=== PATIENT | female | born 1970 | race Caucasian/White ===

== ENCOUNTER 2019-02-16 18:45 | Inpatient (IN) | payer MEDICAID ==
[~2019-02-16] VITALS: Ht 163.8 cm; Wt 168.0 kg
[2019-02-16 19:58] LABS: BASOPHILS # (AUTO) 0.2 X10'3 (0-0.2); BASOPHILS % (AUTO) 1.5 % (0-1); EOSINOPHILS # (AUTO) 0.3 X10'3 (0-0.9); EOSINOPHILS % (AUTO) 2.7 % (0-6); HEMATOCRIT 35.5 % (35.0-45.0); HEMOGLOBIN 11.3 g/dl (12.0-16.0); LYMPHOCYTES # (AUTO) 2.1 X10'3 (1.1-4.8); LYMPHOCYTES % (AUTO) 17.3 % (21-51); MEAN CORPUSCULAR HEMOGLOBIN 22.6 PG (27.0-31.0); MEAN CORPUSCULAR VOLUME 70.7 FL (78-98); MEAN PLATELET VOLUME 7.7 FL (7.4-10.4); MONOCYTES # (AUTO) 0.6 X10'3 (0-0.9); MONOCYTES % (AUTO) 5.2 % (2-12); NEUTROPHILS % (AUTO) 73.3 % (42-75); PLATELET COUNT 267 X10'3 (140-440); RED BLOOD COUNT 5.02 X10'6 (4.20-5.60); RED CELL DISTRIBUTION WIDTH 17.1 % (11.5-14.5); WHITE BLOOD COUNT 12.3 X10'3 (4.5-11.0)
[2019-02-16 20:12] LABS: PARTIAL THROMBOPLASTIN TIME 22 SECONDS (22-32)
[2019-02-16 20:14] LABS: ALANINE AMINOTRANSFERASE 44 U/L (12-78); ALBUMIN 3.5 G/DL (3.4-5.0); ALBUMIN/GLOBULIN RATIO 0.9 (1.1-1.5); ALKALINE PHOSPHATASE 48 IU/L (46-116); ANION GAP 11 (8-16); ASPARTATE AMINO TRANSFERASE 27 U/L (10-37); BILIRUBIN,TOTAL 0.4 MG/DL (0.1-1.0); BLOOD UREA NITROGEN 19 MG/DL (7-18); BUN/CREATININE RATIO 20.9 (6.6-38.0); CALCIUM 9.1 MG/DL (8.5-10.1); CHLORIDE 104 MMOL/L (99-107); CREATININE 0.91 MG/DL (0.40-0.90); GLUCOSE 113 MG/DL (70-104); POTASSIUM 3.4 MMOL/L (3.5-5.1); SODIUM 140 MMOL/L (135-145); TOTAL CARBON DIOXIDE 25.3 MMOL/L (24-32); TOTAL PROTEIN 7.4 G/DL (6.4-8.2); eGFR 66 ML/MIN
[2019-02-16] MEDS ORDERED: ipratropium/albuterol 3ml nebule NEB ONE (20:15)
[2019-02-16] MEDS ORDERED: aspirin 81mg tab.chew PO ONE (20:40)
[2019-02-16] MEDS ORDERED: temazepam 15mg capsule PO PRN (21:00)
[2019-02-16] MEDS ORDERED: SYN0.088T PO (22:12)
[2019-02-16] MEDS ORDERED: mag hydrox/Alum hydrox/simeth 30ml oral suspension PO PRN (22:15)
[2019-02-16] MEDS ORDERED: regadenoson 0.4mg/5ml syringe IV ONE (22:15)
[2019-02-16] MEDS ORDERED: NAPR-1154 PO (22:15)
[2019-02-16] MEDS ORDERED: aminophylline 250mg/10ml inj. IV PRN (22:15)
[2019-02-16] MEDS ORDERED: acetaminophen 325mg tablet PO PRN ×2 (22:15)
[2019-02-16] MEDS ORDERED: nitroGLYCERIN 0.4mg SUBLingual tab SL PRN (22:15)
[2019-02-16] MEDS ORDERED: ondansetron/PF 4mg/2ml inj IV PRN (22:15)
[2019-02-16] MEDS ORDERED: potassium Cl 20 mEq SR tablet PO PRN (22:15)
[2019-02-16] MEDS ORDERED: metoprolol tartrate 1mg/ml inj IV PRN (22:15)
[2019-02-16] MEDS ORDERED: albuterol 2.5 MG/3 ML nebule NEB PRN (22:15)
[2019-02-16] MEDS ORDERED: potassium CL 10mEq/100ml bag 100 ML IV PRN ×2 (22:15)
[2019-02-16] MEDS ORDERED: magnesium hydroxide 30ml (MOM) UD suspension PO PRN (22:15)
[2019-02-16] MEDS ORDERED: regadenoson 0.4mg/5ml syringe IV PRN (22:40)
--- NOTE | 2019-02-16 23:10 | NUR ---
Received report from Silver in the ER. Patient on their way up to the PCU unit at this time.
--- NOTE | 2019-02-16 23:15 | NUR ---
Patient arrived to PCU at this time going into room 3021. She is alert and oriented and able to make her needs known. She was able to ambulate from the gurney to the bed independently without assistance but did experience some increased shortness of breath with exertion. She is on 2 liters oxygen via nasal cannula. Vitals are stable. She denies any pain at this time, just says that sometimes when her SOB increases she feels some chest tightness. All safety precautions are in place. She is shown how to use the call light system. Will continue to monitor.
[2019-02-16 23:20] VITALS: BP 137/98
[2019-02-16] MEDS: normal saline 1000ml 1,000 ML IV SCH (23:29)
[2019-02-17] VITALS (14 sets, daily range): BP systolic 123–153; BP diastolic 76–97
--- NOTE | 2019-02-17 01:03 | NUR ---
Med req initiated in the ER and all medications that patient could recall the names and dosages of were inputted, however patient does take more medications that she does not know off of memory and it was requested for her to have a family member bring in her home medication list.
[2019-02-17] MEDS: potassium Cl 20 mEq SR tablet PO PRN ×3 (01:31→17:12)
[2019-02-17 02:28] LABS: ALBUMIN 3.2 G/DL (3.4-5.0); ANION GAP 10 (8-16); BLOOD UREA NITROGEN 17 MG/DL (7-18); BUN/CREATININE RATIO 17.7 (6.6-38.0); CALCIUM 8.1 MG/DL (8.5-10.1); CHLORIDE 104 MMOL/L (99-107); CHOL/HDL RATIO 3.6 (0.00-4.99); CHOLESTEROL 112 MG/DL (0-200); CREATININE 0.96 MG/DL (0.40-0.90); GLUCOSE 129 MG/DL (70-104); HDL CHOLESTEROL 31 MG/DL (35-60); LDL CHOLESTEROL 70 MG/DL (50-100); POTASSIUM 3.4 MMOL/L (3.5-5.1); SODIUM 140 MMOL/L (135-145); TOTAL CARBON DIOXIDE 26.1 MMOL/L (24-32); TRIGLYCERIDES 141 MG/DL (20-135); eGFR 62 ML/MIN
--- NOTE | 2019-02-17 06:29 | NUR ---
Problems reprioritized. Patient report given , questions answered & plan of care reviewed with Tracie CAR.
--- NOTE | 2019-02-17 06:30 | NUR ---
Patient in room PCU 3021. I have received report from Mima CAR and had the opportunity to ask questions and assume patient care.
--- NOTE | 2019-02-17 06:30 | NUR ---
Patient in room PCU 3021. I have received report from Mima CAR and had the opportunity to ask questions and assume patient care. Patient awake in bed with no complaints at this time. All immediate needs met.
[2019-02-17] MEDS: K and/or MAG REPLACEMENT MC SCH (08:00)
[2019-02-17 08:01] LABS: MEAN PLATELET VOLUME 7.8 FL (7.4-10.4); MONOCYTES # (AUTO) 0.6 X10'3 (0-0.9)
[2019-02-17 08:07] LABS: HEMOGLOBIN 11.3 g/dl (12.0-16.0); MEAN CORPUSCULAR HGB CONC 31.5 g/dL (33.0-36.5); NEUTROPHILS % (AUTO) 71.7 % (42-75)
[2019-02-17 08:10] LABS: BASOPHILS # (AUTO) 0.2 X10'3 (0-0.2); BASOPHILS % (AUTO) 1.4 % (0-1); EOSINOPHILS # (AUTO) 0.4 X10'3 (0-0.9); EOSINOPHILS % (AUTO) 3.2 % (0-6); HEMATOCRIT 35.8 % (35.0-45.0); LYMPHOCYTES # (AUTO) 2.3 X10'3 (1.1-4.8); LYMPHOCYTES % (AUTO) 18.6 % (21-51); MEAN CORPUSCULAR HEMOGLOBIN 22.6 PG (27.0-31.0); MEAN CORPUSCULAR VOLUME 71.8 FL (78-98); MONOCYTES % (AUTO) 5.1 % (2-12); NEUTROPHILS # (AUTO) 8.9 X10'3 (1.8-7.7); PLATELET COUNT 265 X10'3 (140-440); RED BLOOD COUNT 4.98 X10'6 (4.20-5.60); RED CELL DISTRIBUTION WIDTH 17.2 % (11.5-14.5); WHITE BLOOD COUNT 12.4 X10'3 (4.5-11.0)
[2019-02-17 08:24] LABS: ANISOCYTOSIS 1+; GIANT PLATELET FEW; MICROCYTOSIS 1+; PLATELET ESTIMATE NORMAL
[2019-02-17 08:25] LABS: POLYCHROMASIA 2+
[2019-02-17 10:15] LABS: D-DIMER 1.52 MG/L FEU (0-0.50)
[2019-02-17] MEDS: normal saline 1000ml 1,000 ML IV SCH ×2 (12:11→23:30)
[2019-02-17] MEDS ORDERED: iohexol 350MG/ML 100ml bottle IV ONE (13:08)
[2019-02-17] MEDS: furosemide 40mg/4ml inj IV SCH ×2 (13:10→19:33)
--- NOTE | 2019-02-17 13:47 | NUR ---
Paged Dr. Cook: PAGER ID: [phone] MESSAGE: RE; Alycia Desai [phone]. FYI - patient complained on increased chest pain. Ordered stat EKG and it was negative. Patient going for CT now. thank you. Tracie [phone]
--- NOTE | 2019-02-17 14:49 | NUR ---
Paged Dr. Cook: PAGER ID: [phone] MESSAGE: RE: Caroline Alycia [phone]. Patient CT resulted. Lexiscan completed. Is it OK to feed patient? Thank you Dr. Cook. Tracie [phone]
--- NOTE | 2019-02-17 15:01 | NUR ---
New orders from Dr. Cook: Eliquis 5 mg PO BID. Start now. Heart healthy diet
[2019-02-17] MEDS: apixaban 5mg tablet PO SCH ×2 (15:41→19:33)
--- NOTE | 2019-02-17 18:16 | NUR ---
Problems reprioritized. Patient report given, questions answered & plan of care reviewed with Satnam CAR. Patient stable at transfer of care.
--- NOTE | 2019-02-17 18:24 | NUR ---
Patient in room PCU 3021. I have received report from Tracie CAR and had the opportunity to ask questions and assume patient care.
--- NOTE | 2019-02-17 18:59 | NUR ---
Student documentation: I have reviewed and agree with all interventions, assessments performed and documented by Doreen LEAHY. Student Medication Administration: For this medication-pass time frame, all medication were reviewed, dispensed, administered and documented per hospital policy by Doreen CAR.
[2019-02-18 02:30] VITALS: BP 153/92
[2019-02-18] MEDS: normal saline 1000ml 1,000 ML IV SCH (04:11)
[2019-02-18 05:01] LABS: ANION GAP 8 (8-16); BASOPHILS # (AUTO) 0.1 X10'3 (0-0.2); BASOPHILS % (AUTO) 1.1 % (0-1); BLOOD UREA NITROGEN 19 MG/DL (7-18); BUN/CREATININE RATIO 21.3 (6.6-38.0); CALCIUM 8.7 MG/DL (8.5-10.1); CHLORIDE 106 MMOL/L (99-107); CREATININE 0.89 MG/DL (0.40-0.90); EOSINOPHILS # (AUTO) 0.4 X10'3 (0-0.9); EOSINOPHILS % (AUTO) 3.7 % (0-6); GLUCOSE 92 MG/DL (70-104); HEMOGLOBIN 11.1 g/dl (12.0-16.0); LYMPHOCYTES # (AUTO) 2.7 X10'3 (1.1-4.8); LYMPHOCYTES % (AUTO) 27.3 % (21-51); MEAN CORPUSCULAR HEMOGLOBIN 22.9 PG (27.0-31.0); MEAN CORPUSCULAR HGB CONC 31.8 g/dL (33.0-36.5); MEAN CORPUSCULAR VOLUME 71.9 FL (78-98); MEAN PLATELET VOLUME 7.8 FL (7.4-10.4); MONOCYTES # (AUTO) 0.6 X10'3 (0-0.9); NEUTROPHILS # (AUTO) 6.2 X10'3 (1.8-7.7); NEUTROPHILS % (AUTO) 61.9 % (42-75); PLATELET COUNT 244 X10'3 (140-440); POTASSIUM 3.4 MMOL/L (3.5-5.1); RED BLOOD COUNT 4.86 X10'6 (4.20-5.60); RED CELL DISTRIBUTION WIDTH 17.1 % (11.5-14.5); SODIUM 141 MMOL/L (135-145); TOTAL CARBON DIOXIDE 26.6 MMOL/L (24-32); eGFR 68 ML/MIN
[2019-02-18] MEDS: potassium Cl 20 mEq SR tablet PO PRN ×2 (05:33→10:15)
--- NOTE | 2019-02-18 05:55 | NUR ---
Orientee documentation: I have reviewed and agree with all interventions, assessments performed and documented by Vincenzo CAR.
[2019-02-18 06:00] VITALS: BP_SYST 148; BP_SYST 160; BP_DIAS 82; BP_DIAS 97
[2019-02-18] MEDS ORDERED: enoxaparin 40mg/0.4ml syringe SUBCUT SCH (08:00)
[2019-02-18] MEDS: apixaban 5mg tablet PO SCH (08:47)
[2019-02-18] MEDS: furosemide 40mg/4ml inj IV SCH (08:47)
[2019-02-18] MEDS: K and/or MAG REPLACEMENT MC SCH (08:56)
[2019-02-18] MEDS ORDERED: APIX5TAB3 PO (10:29)
[2019-02-18] MEDS ORDERED: FURO-150 PO (10:29)
[2019-02-18 11:00] VITALS: BP_SYST 130; BP_SYST 134; BP_DIAS 79; BP_DIAS 86
--- NOTE | 2019-02-18 11:46 | NUR ---
ambulated patient without O2 and monitored SPO2 throughout walk. Patient's breathing did become somewhat labored but patient did not report dyspnea or chest pain, SPO2 maintained >93% throughout ambulation. Patient does not require O2 at home.
--- NOTE | 2019-02-18 15:15 | NUR ---
Received order for patient discharge to occur after vascular scan, vascular scan completed and patient IV removed, catheter tip intact, hemostasis achieved. Patient educated on new medications and disease process and verbalized understanding of the education. Telemetry removed, wrist band removed, stable at time of discharge, patient transported downstairs by director nursing service via wheelchair, patient instructed to strip picker her knife from security at the director of front office.
[2019-02-21 06:23] LABS: ANTITHROMBIN ACTIVITY 125 % (75-135); ANTITHROMBIN ANTIGEN 84 % (72-124)
[2019-02-21 10:05] LABS: PROTEIN S, FREE 115 % (57-157); PROTEIN S, TOTAL 86 % (60-150)
== END 2019-02-18 15:11 | disposition home or self-care (01) | DRG 134 ==
LOC: ER 18:46 → ED HOLD 22:18 → EDBEDREQ 22:21 → PCU 3S 23:19 → OBSVTOIN 02-17 11:00
PROVIDERS: ADMIT Hospitalist; ATTEND Internal Medicine
PROC: 4A02XM4 Measurement of Cardiac Total Activity, External Approach (ICD-10-PCS; principal; 2019-02-17)
PROC: 3E033HZ Introduction of Radioactive Substance into Peripheral Vein, Percutaneous Approach (ICD-10-PCS; 2019-02-17)
PROC: B32T1ZZ Computerized Tomography (CT Scan) of Left Pulmonary Artery using Low Osmolar Contrast (ICD-10-PCS; 2019-02-17)
PROC: B3201ZZ Computerized Tomography (CT Scan) of Thoracic Aorta using Low Osmolar Contrast (ICD-10-PCS; 2019-02-17)
PROC: B32S1ZZ Computerized Tomography (CT Scan) of Right Pulmonary Artery using Low Osmolar Contrast (ICD-10-PCS; 2019-02-17)
DX: I26.09 Other pulmonary embolism with acute cor pulmonale (principal); J96.01 Acute respiratory failure with hypoxia; E66.01 Morbid (severe) obesity due to excess calories; Z68.44 Body mass index [BMI] 60.0-69.9, adult; E03.9 Hypothyroidism, unspecified; E87.6 Hypokalemia; J42 Unspecified chronic bronchitis; I10 Essential (primary) hypertension; Z60.2 Problems related to living alone; M54.9 Dorsalgia, unspecified; G89.29 Other chronic pain; J45.909 Unspecified asthma, uncomplicated; Z79.01 Long term (current) use of anticoagulants; Z79.899 Other long term (current) drug therapy; Z98.51 Tubal ligation status; Z88.8 Allergy status to other drugs, medicaments and biological substances; Z90.49 Acquired absence of other specified parts of digestive tract
CPT/HCPCS: 36415; 71046; 71275; 78452; 80048; 80053; 80061; 81479; 83880; 83891; 83894; 83898; 84484; 85025; 85300; 85301; 85303; 85305; 85306; 85379; 85610; 85730; 86146; 86147; 87081; 93005; 93017; 93306; 93970; 94640; 94760; 99285; A9500; G0378; J0280; J1650; J1940; J2785; J7030; Q9967

== ENCOUNTER 2019-06-19 14:42 | Emergency (ER) | payer MEDICAID ==
[~2019-06-19] VITALS: Ht 162.6 cm; Wt 163.0 kg
[~2019-06-19 14:42] MED LIST: APIX5TAB3 PO; SYN0.088T PO
[2019-06-19 16:27] LABS: BASOPHILS # (AUTO) 0.1 X10'3 (0-0.2); BASOPHILS % (AUTO) 1.8 % (0-1); EOSINOPHILS # (AUTO) 0.3 X10'3 (0-0.9); EOSINOPHILS % (AUTO) 5.1 % (0-6); HEMATOCRIT 32.5 % (35.0-45.0); HEMOGLOBIN 10.2 g/dl (12.0-16.0); LYMPHOCYTES # (AUTO) 1.7 X10'3 (1.1-4.8); MEAN CORPUSCULAR HEMOGLOBIN 21.4 PG (27.0-31.0); MEAN CORPUSCULAR HGB CONC 31.5 g/dL (33.0-36.5); MEAN PLATELET VOLUME 6.8 FL (7.4-10.4); MONOCYTES # (AUTO) 0.3 X10'3 (0-0.9); MONOCYTES % (AUTO) 6.6 % (2-12); NEUTROPHILS # (AUTO) 2.7 X10'3 (1.8-7.7); NEUTROPHILS % (AUTO) 52.5 % (42-75); PLATELET COUNT 260 X10'3 (140-440); RED BLOOD COUNT 4.78 X10'6 (4.20-5.60); RED CELL DISTRIBUTION WIDTH 19.2 % (11.5-14.5); WHITE BLOOD COUNT 5.1 X10'3 (4.5-11.0)
[2019-06-19] MEDS ORDERED: medroxyprogesterone acet. 2.5mg tablet PO STA (16:34)
[2019-06-19 16:48] LABS: ALANINE AMINOTRANSFERASE 16 U/L (12-78); ALBUMIN 3.4 G/DL (3.4-5.0); ALBUMIN/GLOBULIN RATIO 0.8 (1.1-1.5); ALKALINE PHOSPHATASE 53 IU/L (46-116); ANION GAP 8 (8-16); ASPARTATE AMINO TRANSFERASE 13 U/L (10-37); BILIRUBIN,TOTAL 0.2 MG/DL (0.1-1.0); BLOOD UREA NITROGEN 11 MG/DL (7-18); BUN/CREATININE RATIO 14.5 (6.6-38.0); CALCIUM 9.3 MG/DL (8.5-10.1); CHLORIDE 105 MMOL/L (99-107); CREATININE 0.76 MG/DL (0.40-0.90); GLUCOSE 128 MG/DL (70-104); POTASSIUM 3.5 MMOL/L (3.5-5.1); SODIUM 141 MMOL/L (135-145); TOTAL CARBON DIOXIDE 27.7 MMOL/L (24-32); TOTAL PROTEIN 7.6 G/DL (6.4-8.2); eGFR 81 ML/MIN
[2019-06-19] MEDS ORDERED: MEDR10TA PO (16:52)
[2019-06-19 16:59] LABS: URINE HCG NEGATIVE (NEG)
[2019-06-19 17:01] VITALS: BP 157/85
[2019-06-19 17:01] LABS: CLARITY,URINE CLOUDY (Clear); COLOR,URINE RED (Yellow); GLUCOSE, URINE NEGATIVE (Neg); KETONES,URINE TRACE mg/dl (Neg); LEUKOCYTE ESTERASE ,URINE TRACE (Neg); OCCULT BLOOD,URINE LARGE (Neg); PROTEIN,URINE 100 mg/dl (Neg)
[2019-06-19 17:05] LABS: UA COLLECTION TYPE CLN CATCH MIDSTREAM
[2019-06-19 17:06] LABS: BACTERIA,URINE NONE SEEN /HPF (Neg); NITRITES, URINE NEGATIVE (Neg); RBC,URINE TNTC /HPF (0-2); WBC,URINE 0-4 /HPF (0-4)
[2019-06-19 17:07] LABS: MUCUS STRANDS FEW /LPF (Neg); SQUAMOUS EPITHELIAL CELL,UR NONE SEEN /LPF (FEW)
== END 2019-06-19 17:36 | disposition home or self-care (01) ==
LOC: ER 14:43
DX: N92.0 Excessive and frequent menstruation with regular cycle (principal); I10 Essential (primary) hypertension; J45.909 Unspecified asthma, uncomplicated; G89.29 Other chronic pain; M06.9 Rheumatoid arthritis, unspecified; Z86.711 Personal history of pulmonary embolism; Z98.51 Tubal ligation status; Z60.2 Problems related to living alone; Z88.8 Allergy status to other drugs, medicaments and biological substances; Z79.01 Long term (current) use of anticoagulants; Z79.899 Other long term (current) drug therapy
CPT/HCPCS: 80053; 81001; 81025; 85025; 85610; 87088; 99283

== ENCOUNTER 2021-08-18 22:53 | Emergency (ER) | payer MEDICAID ==
[~2021-08-18] VITALS: Ht 162.6 cm; Wt 187.0 kg
[~2021-08-18 22:53] MED LIST changes: +MEDR10TA PO
[2021-08-19 01:19] LABS: BASOPHILS # (AUTO) 0.1 X10'3 (0-0.2); BASOPHILS % (AUTO) 0.7 % (0-1); EOSINOPHILS # (AUTO) 0.2 X10'3 (0-0.9); EOSINOPHILS % (AUTO) 1.8 % (0-6); HEMATOCRIT 38.5 % (35.0-45.0); HEMOGLOBIN 12.6 g/dl (12.0-16.0); LYMPHOCYTES # (AUTO) 1.9 X10'3 (1.1-4.8); LYMPHOCYTES % (AUTO) 20.6 % (21-51); MEAN CORPUSCULAR HEMOGLOBIN 26.5 PG (27.0-31.0); MEAN CORPUSCULAR HGB CONC 32.7 g/dL (33.0-36.5); MEAN PLATELET VOLUME 7.1 FL (7.4-10.4); MONOCYTES # (AUTO) 0.5 X10'3 (0-0.9); MONOCYTES % (AUTO) 5.6 % (2-12); NEUTROPHILS # (AUTO) 6.6 X10'3 (1.8-7.7); NEUTROPHILS % (AUTO) 71.3 % (42-75); PLATELET COUNT 242 X10'3 (140-440); RED BLOOD COUNT 4.76 X10'6 (4.20-5.60); RED CELL DISTRIBUTION WIDTH 15.9 % (11.5-14.5); WHITE BLOOD COUNT 9.2 X10'3 (4.5-11.0)
[2021-08-19 01:33] LABS: ALANINE AMINOTRANSFERASE 26 U/L (12-78); ALBUMIN 3.2 G/DL (3.4-5.0); ALBUMIN/GLOBULIN RATIO 0.8 (1.1-1.5); ALKALINE PHOSPHATASE 57 IU/L (46-116); ANION GAP 7 (8-16); ASPARTATE AMINO TRANSFERASE 22 U/L (10-37); BILIRUBIN,TOTAL 0.5 MG/DL (0.1-1.0); BLOOD UREA NITROGEN 9 MG/DL (7-18); BUN/CREATININE RATIO 11.3 (6.6-38.0); CALCIUM 8.4 MG/DL (8.5-10.1); CHLORIDE 104 MMOL/L (99-107); GLUCOSE 115 MG/DL (70-104); POTASSIUM 3.2 MMOL/L (3.5-5.1); SODIUM 139 MMOL/L (135-145); TOTAL CARBON DIOXIDE 27.6 MMOL/L (24-32); TOTAL PROTEIN 7.3 G/DL (6.4-8.2); eGFR 76 ML/MIN
[2021-08-19] MEDS ORDERED: potassium Cl 20 mEq SR tablet PO STA (01:44)
[2021-08-19 02:15] VITALS: BP 176/79
== END 2021-08-19 02:16 | disposition home or self-care (01) ==
LOC: ER 22:55
DX: N93.9 Abnormal uterine and vaginal bleeding, unspecified (principal); E87.6 Hypokalemia; R42 Dizziness and giddiness; R06.02 Shortness of breath; I10 Essential (primary) hypertension; J45.909 Unspecified asthma, uncomplicated; G89.29 Other chronic pain; Z86.711 Personal history of pulmonary embolism; Z98.51 Tubal ligation status; Z60.2 Problems related to living alone; Z88.8 Allergy status to other drugs, medicaments and biological substances; Z79.899 Other long term (current) drug therapy
CPT/HCPCS: 36415; 80053; 85025; 93005; 99284

== ENCOUNTER 2022-06-27 10:48 | Inpatient (IN) | payer MEDICAID ==
[2022-06-27] VITALS (11 sets, daily range): BP systolic 107–150; BP diastolic 46–73
[~2022-06-27] VITALS: Ht 162.6 cm; Wt 182.0 kg
[2022-06-27 11:35] LABS: BASOPHILS # (AUTO) 0.1 X10'3 (0-0.2); BASOPHILS % (AUTO) 0.4 % (0-1); EOSINOPHILS % (AUTO) 0.1 % (0-6); LYMPHOCYTES # (AUTO) 0.5 X10'3 (1.1-4.8); LYMPHOCYTES % (AUTO) 2.4 % (21-51); MEAN CORPUSCULAR HEMOGLOBIN 15.3 PG (27.0-31.0); MEAN CORPUSCULAR VOLUME 56.6 FL (78-98); MONOCYTES # (AUTO) 0.5 X10'3 (0-0.9); MONOCYTES % (AUTO) 2.5 % (2-12); NEUTROPHILS # (AUTO) 19.6 X10'3 (1.8-7.7); NEUTROPHILS % (AUTO) 94.6 % (42-75); PLATELET COUNT 300 X10'3 (140-440); RED BLOOD COUNT 3.16 X10'6 (4.20-5.60); RED CELL DISTRIBUTION WIDTH 22.4 % (11.5-14.5); WHITE BLOOD COUNT 20.8 X10'3 (4.5-11.0)
[2022-06-27 11:44] LABS: APTT 23 SECONDS (22-32)
[2022-06-27 11:46] LABS: ALANINE AMINOTRANSFERASE 16 U/L (12-78); ALBUMIN 3.2 G/DL (3.4-5.0); ALBUMIN/GLOBULIN RATIO 0.8 (1.1-1.5); ALKALINE PHOSPHATASE 58 IU/L (46-116); ANION GAP 10 (8-16); ASPARTATE AMINO TRANSFERASE 16 U/L (10-37); BLOOD UREA NITROGEN 7 MG/DL (7-18); CALCIUM 8.7 MG/DL (8.5-10.1); CHLORIDE 103 MMOL/L (99-107); CREATININE 0.88 MG/DL (0.40-0.90); GLUCOSE 207 MG/DL (70-104); POTASSIUM 3.9 MMOL/L (3.5-5.1); SODIUM 138 MMOL/L (135-145); TOTAL CARBON DIOXIDE 25.5 MMOL/L (24-32); TOTAL PROTEIN 7.3 G/DL (6.4-8.2); eGFR 68 ML/MIN
[2022-06-27 11:47] LABS: HEMATOCRIT 17.9 % (35.0-45.0); HEMOGLOBIN 4.8 g/dl (12.0-16.0)
[2022-06-27 12:33] LABS: PLATELET ESTIMATE NORMAL
[2022-06-27 12:36] LABS: ANISOCYTOSIS 3+; MICROCYTOSIS 3+; POIKILOCYTOSIS 3+
[2022-06-27 12:37] LABS: ELLIPTOCYTES 1+; STOMATOCYTES 2+; TEAR DROP CELLS 1+
[2022-06-27 12:38] LABS: HYPOCHROMASIA 3+
[2022-06-27] MEDS: acetaminophen 325mg tablet PO ONE ×2 (12:55→13:49)
[2022-06-27 13:26] LABS: MAGNESIUM 1.9 MG/DL (1.5-2.4)
[2022-06-27] MEDS ORDERED: acetaminophen 325mg tablet PO ONE (14:00)
[2022-06-27] MEDS ORDERED: CefTRIAXone/D5W-Rocephin 1gm 50 ML IV ONE (14:10)
[2022-06-27] MEDS ORDERED: vancomycin/NS 1 GM ADD-VANTAGE 250 ML IV ONE (14:10)
[2022-06-27] MEDS ORDERED: LEVO100T9 PO (14:50)
[2022-06-27] MEDS ORDERED: FURO20TA4 PO (14:50)
[2022-06-27] MEDS ORDERED: ACET-1 PO (14:50)
[2022-06-27] MEDS ORDERED: APIX5TAB3 PO (14:50)
[2022-06-27] MEDS ORDERED: POTA8TAB69 PO (14:50)
[2022-06-27] MEDS ORDERED: magnesium Cl slow-release 64mg tablet PO PRN (15:00)
[2022-06-27] MEDS ORDERED: magnesium 4gm in 100ml NS 100 ML IV PRN (15:00)
[2022-06-27] MEDS ORDERED: potassium Cl 40MEQ/1/2NS 520ml 520 ML IV PRN (15:00)
[2022-06-27] MEDS ORDERED: ondansetron/PF 4mg/2ml inj IV PRN (15:00)
[2022-06-27] MEDS ORDERED: potassium Cl 20 mEq SR tablet PO PRN ×2 (15:00)
--- NOTE | 2022-06-27 15:24 | NUR ---
Report given to Crystal CAR
[2022-06-27] MEDS: normal saline 1000ml 1,000 ML IV SCH (16:59)
[2022-06-27] MEDS: acetaminophen 325mg tablet PO PRN (18:46)
[2022-06-27] MEDS: K and/or MAG REPLACEMENT MC SCH (20:00)
--- NOTE | 2022-06-27 22:49 | NUR ---
PATIENT HELPED TO BEDSIDE COMMODE AND BACK TO BED NO NEEDS AT THIS TIME
[2022-06-27] MEDS: ceFAZolin/D5W- 1GM premix 50 ML IV SCH (23:45)
[2022-06-28] VITALS (19 sets, daily range): BP systolic 131–188; BP diastolic 69–92
[2022-06-28] MEDS: normal saline 1000ml 1,000 ML IV SCH ×3 (02:01→21:13)
--- NOTE | 2022-06-28 02:23 | NUR ---
PATIENT PLACED ON A HOSPITAL Addendum: 06/28/22 at 0223 by LEANA PATIENT PLACED ON A HOSPITAL BED
[2022-06-28 03:50] LABS: BASOPHILS % (AUTO) 0.2 % (0-1); EOSINOPHILS % (AUTO) 0 % (0-6); LYMPHOCYTES % (AUTO) 6.7 % (21-51); MEAN CORPUSCULAR HEMOGLOBIN 18.1 PG (27.0-31.0); MEAN CORPUSCULAR HGB CONC 29.1 g/dL (33.0-36.5); MEAN CORPUSCULAR VOLUME 62.2 FL (78-98); MONOCYTES # (AUTO) 0.4 X10'3 (0-0.9); MONOCYTES % (AUTO) 2.6 % (2-12); NEUTROPHILS # (AUTO) 13.9 X10'3 (1.8-7.7); NEUTROPHILS % (AUTO) 90.5 % (42-75); PLATELET COUNT 231 X10'3 (140-440); RED BLOOD COUNT 3.21 X10'6 (4.20-5.60); RED CELL DISTRIBUTION WIDTH 29.5 % (11.5-14.5); WHITE BLOOD COUNT 15.4 X10'3 (4.5-11.0)
[2022-06-28 03:52] LABS: HEMOGLOBIN 5.8 g/dl (12.0-16.0)
[2022-06-28 03:55] LABS: ALBUMIN 2.6 G/DL (3.4-5.0); ANION GAP 8 (8-16); BLOOD UREA NITROGEN 9 MG/DL (7-18); BUN/CREATININE RATIO 10.8 (6.6-38.0); CALCIUM 8.6 MG/DL (8.5-10.1); CHLORIDE 106 MMOL/L (99-107); CREATININE 0.83 MG/DL (0.40-0.90); GLUCOSE 150 MG/DL (70-104); MAGNESIUM 1.9 MG/DL (1.5-2.4); POTASSIUM 3.5 MMOL/L (3.5-5.1); SODIUM 140 MMOL/L (135-145); TOTAL CARBON DIOXIDE 26.5 MMOL/L (24-32); eGFR 72 ML/MIN
--- NOTE | 2022-06-28 04:15 | NUR ---
CALLED HOSPITALIST DUE TO PATIENTS LOW H/H HOSPITALIST "[facility]" VERBALIZED THEY WILL NOT ORDER A NEW UNIT OF PRBC TO ORDER A HEMOCULT
[2022-06-28] MEDS: acetaminophen 325mg tablet PO PRN ×3 (06:26→21:17)
[2022-06-28] MEDS: potassium chloride 8mEq ER tablet PO SCH (07:23)
[2022-06-28] MEDS: levoTHYROXINE 100mcg tablet PO SCH (07:23)
[2022-06-28] MEDS: furosemide 20MG tablet PO SCH (07:23)
[2022-06-28] MEDS: K and/or MAG REPLACEMENT MC SCH ×2 (08:00→20:08)
[2022-06-28 08:33] LABS: MEAN CORPUSCULAR HEMOGLOBIN 17.6 PG (27.0-31.0); MEAN CORPUSCULAR HGB CONC 28.3 g/dL (33.0-36.5); MEAN CORPUSCULAR VOLUME 62.3 FL (78-98); MEAN PLATELET VOLUME 8.3 FL (7.4-10.4); PLATELET COUNT 225 X10'3 (140-440); RED BLOOD COUNT 3.08 X10'6 (4.20-5.60); RED CELL DISTRIBUTION WIDTH 29.9 % (11.5-14.5); WHITE BLOOD COUNT 15.5 X10'3 (4.5-11.0)
[2022-06-28 08:37] LABS: HEMOGLOBIN 5.4 g/dl (12.0-16.0)
--- NOTE | 2022-06-28 08:37 | NUR ---
JOSEP POE RE PTS H&H RESULTS
[2022-06-28] MEDS: ceFAZolin/D5W- 1GM premix 50 ML IV SCH (08:43)
[2022-06-28 08:44] LABS: HEMATOCRIT 19.2 % (35.0-45.0)
--- NOTE | 2022-06-28 09:10 | NUR ---
RECEIVED ORDERS FROM DR POE FOR 3 UNITS PRBC, OCCULT STOOL AND NON CONTRAST CT OF ABDOMEN AND PELVIS
--- NOTE | 2022-06-28 09:32 | NUR ---
ED BED 4--setup ready for occult stool test. Can you come perform? [phone] paged Dr Yan
[2022-06-28] MEDS ORDERED: iohexol 350MG/ML 100ml bottle IV ONE (10:59)
--- NOTE | 2022-06-28 12:32 | NUR ---
ed bed 4--1 unit PRBC in. pt BP elevated around 20 SBP from baseline by end of transfusion. Do you want to hold on the other units? [phone]
[2022-06-28] MEDS ORDERED: metoprolol tartrate 1mg/ml inj IV ONE (13:25)
[2022-06-28] MEDS ORDERED: furosemide 10 MG/1 ML 10ml inj IV ONE (13:25)
[2022-06-28] MEDS: cefepime 1GM/NS ADD-VANTAGE 100 ML IV SCH ×2 (14:01→16:00)
[2022-06-28] MEDS: vancomycin/NS 1 GM ADD-VANTAGE 250 ML IV SCH ×2 (16:38→23:05)
--- NOTE | 2022-06-28 21:21 | NUR ---
Provider notified of elevated temp during tranfusion, suspected this is from infectious process vs transfusion reaction. Provider is aware, agrees, advised continue with tylenol as needed.
[2022-06-28 22:53] LABS: CLARITY,URINE CLEAR (Clear); COLOR,URINE YELLOW (Yellow); GLUCOSE, URINE NEGATIVE (Neg); KETONES,URINE NEGATIVE (Neg); LEUKOCYTE ESTERASE ,URINE NEGATIVE (Neg); NITRITES, URINE NEGATIVE (Neg); OCCULT BLOOD,URINE NEGATIVE (Neg); PROTEIN,URINE TRACE mg/dl (Neg); UROBILINOGEN,URINE 0.2 E.U/dL (0.2-1.0)
[2022-06-28 22:55] LABS: UA COLLECTION TYPE NON-SPECIFIED
[2022-06-28 22:59] LABS: BACTERIA,URINE FEW /HPF (Neg); RBC,URINE 0-2 /HPF (0-2); SQUAMOUS EPITHELIAL CELL,UR MODERATE /LPF (FEW); WBC,URINE 0-4 /HPF (0-4)
[2022-06-29] MEDS: cefepime 1GM/NS ADD-VANTAGE 100 ML IV SCH ×3 (00:54→18:45)
--- NOTE | 2022-06-29 04:47 | NUR ---
[id number] PAGER ID: [phone] MESSAGE: ER BED 4 GUS JOSEP [id number]
[2022-06-29] MEDS: acetaminophen 325mg tablet PO PRN ×2 (04:54→18:58)
[2022-06-29] MEDS: normal saline 1000ml 1,000 ML IV SCH ×2 (07:26→18:47)
[2022-06-29] MEDS: K and/or MAG REPLACEMENT MC SCH ×2 (08:00→19:00)
[2022-06-29] MEDS: potassium chloride 8mEq ER tablet PO SCH (08:08)
[2022-06-29] MEDS: furosemide 20MG tablet PO SCH (08:08)
[2022-06-29] MEDS: levoTHYROXINE 100mcg tablet PO SCH (08:08)
[2022-06-29 08:16] LABS: BASOPHILS # (AUTO) 0.1 X10'3 (0-0.2); BASOPHILS % (AUTO) 0.5 % (0-1); EOSINOPHILS % (AUTO) 0.3 % (0-6); HEMATOCRIT 26.7 % (35.0-45.0); HEMOGLOBIN 8.5 g/dl (12.0-16.0); LYMPHOCYTES # (AUTO) 1.3 X10'3 (1.1-4.8); LYMPHOCYTES % (AUTO) 8.2 % (21-51); MEAN CORPUSCULAR VOLUME 68.7 FL (78-98); MEAN PLATELET VOLUME 8.1 FL (7.4-10.4); MONOCYTES # (AUTO) 0.5 X10'3 (0-0.9); MONOCYTES % (AUTO) 3.4 % (2-12); NEUTROPHILS # (AUTO) 14.2 X10'3 (1.8-7.7); NEUTROPHILS % (AUTO) 87.6 % (42-75); PLATELET COUNT 197 X10'3 (140-440); RED BLOOD COUNT 3.89 X10'6 (4.20-5.60); RED CELL DISTRIBUTION WIDTH 32.7 % (11.5-14.5); WHITE BLOOD COUNT 16.2 X10'3 (4.5-11.0)
[2022-06-29 08:36] LABS: ALBUMIN 2.3 G/DL (3.4-5.0); ANION GAP 7 (8-16); BLOOD UREA NITROGEN 12 MG/DL (7-18); BUN/CREATININE RATIO 16.4 (6.6-38.0); CALCIUM 8.3 MG/DL (8.5-10.1); CHLORIDE 106 MMOL/L (99-107); CREATININE 0.73 MG/DL (0.40-0.90); GLUCOSE 116 MG/DL (70-104); MAGNESIUM 1.9 MG/DL (1.5-2.4); POTASSIUM 3.4 MMOL/L (3.5-5.1); SODIUM 138 MMOL/L (135-145); eGFR 84 ML/MIN
[2022-06-29] MEDS: vancomycin/NS 1 GM ADD-VANTAGE 250 ML IV SCH (09:47)
[2022-06-29] MEDS ORDERED: VANCOMYCIN LEVEL IV ONE (14:30)
[2022-06-29 18:00] VITALS: BP 148/71
[2022-06-29] MEDS: VANCOmycin 1250MG/NS 250ml Bag 250 ML IV SCH (18:47)
[2022-06-29 23:05] VITALS: BP 124/64
[2022-06-30] MEDS: cefepime 1GM/NS ADD-VANTAGE 100 ML IV SCH ×4 (00:58→23:12)
[2022-06-30] MEDS: VANCOmycin 1250MG/NS 250ml Bag 250 ML IV SCH ×3 (01:40→17:09)
[2022-06-30 02:35] VITALS: BP 141/71
[2022-06-30] MEDS: normal saline 1000ml 1,000 ML IV SCH ×3 (02:55→22:01)
[2022-06-30] MEDS: acetaminophen 325mg tablet PO PRN ×3 (05:21→19:02)
[2022-06-30 06:00] VITALS: BP 144/71
[2022-06-30 06:28] LABS: BASOPHILS # (AUTO) 0.1 X10'3 (0-0.2); BASOPHILS % (AUTO) 0.7 % (0-1); EOSINOPHILS # (AUTO) 0.3 X10'3 (0-0.9); EOSINOPHILS % (AUTO) 2.5 % (0-6); HEMATOCRIT 26.3 % (35.0-45.0); HEMOGLOBIN 8.1 g/dl (12.0-16.0); LYMPHOCYTES # (AUTO) 1.5 X10'3 (1.1-4.8); LYMPHOCYTES % (AUTO) 12.4 % (21-51); MEAN CORPUSCULAR HEMOGLOBIN 21.3 PG (27.0-31.0); MEAN CORPUSCULAR HGB CONC 30.8 g/dL (33.0-36.5); MEAN CORPUSCULAR VOLUME 69.1 FL (78-98); MEAN PLATELET VOLUME 8.3 FL (7.4-10.4); MONOCYTES # (AUTO) 0.5 X10'3 (0-0.9); MONOCYTES % (AUTO) 4.5 % (2-12); NEUTROPHILS # (AUTO) 9.5 X10'3 (1.8-7.7); NEUTROPHILS % (AUTO) 79.9 % (42-75); PLATELET COUNT 204 X10'3 (140-440); RED BLOOD COUNT 3.81 X10'6 (4.20-5.60); WHITE BLOOD COUNT 11.8 X10'3 (4.5-11.0)
--- NOTE | 2022-06-30 06:38 | NUR ---
Patient in room PCU 3024. I have received report from Vincenzo and had the opportunity to ask questions and assume patient care.
[2022-06-30 06:45] LABS: ALBUMIN 2.1 G/DL (3.4-5.0); ANION GAP 5 (8-16); BLOOD UREA NITROGEN 10 MG/DL (7-18); BUN/CREATININE RATIO 14.9 (6.6-38.0); CALCIUM 8.3 MG/DL (8.5-10.1); CHLORIDE 106 MMOL/L (99-107); CREATININE 0.67 MG/DL (0.40-0.90); GLUCOSE 121 MG/DL (70-104); SODIUM 138 MMOL/L (135-145); TOTAL CARBON DIOXIDE 27.4 MMOL/L (24-32); eGFR > 90 ML/MIN
[2022-06-30 07:26] LABS: ANISOCYTOSIS 3+; HYPOCHROMASIA 1+; MICROCYTOSIS 2+; PLATELET ESTIMATE NORMAL; POIKILOCYTOSIS 1+; POLYCHROMASIA 1+; TEAR DROP CELLS FEW
[2022-06-30] MEDS: K and/or MAG REPLACEMENT MC SCH ×2 (08:00→19:03)
[2022-06-30] MEDS: levoTHYROXINE 100mcg tablet PO SCH (09:22)
[2022-06-30] MEDS: furosemide 20MG tablet PO SCH (09:22)
[2022-06-30] MEDS: potassium chloride 8mEq ER tablet PO SCH (09:22)
[2022-06-30 09:30] VITALS: BP 148/83
[2022-06-30 15:26] LABS: HBSAG SCREEN Negative (Negative); HEP B CORE AB, TOT Negative (Negative)
[2022-06-30] MEDS ORDERED: VANCOMYCIN LEVEL IV ONE (15:30)
--- NOTE | 2022-06-30 17:04 | NUR ---
Student documentation: [facility] student Alda I have reviewed and agree with all interventions, medication administration per hospital policy, and assessments performed and documented by student Alda.
[2022-06-30 18:00] VITALS: BP 131/66
--- NOTE | 2022-06-30 18:20 | NUR ---
Problems reprioritized. Patient report given, questions answered & plan of care reviewed with
[2022-06-30 22:54] VITALS: BP 141/78
[2022-07-01] MEDS: VANCOmycin 1250MG/NS 250ml Bag 250 ML IV SCH ×2 (00:16→08:49)
[2022-07-01 03:41] VITALS: BP 145/76
[2022-07-01 06:00] VITALS: BP 147/72
[2022-07-01] MEDS: cefepime 1GM/NS ADD-VANTAGE 100 ML IV SCH ×2 (07:02→15:42)
[2022-07-01] MEDS: apixaban 5mg tablet PO SCH ×2 (07:03→20:21)
[2022-07-01] MEDS: levoTHYROXINE 100mcg tablet PO SCH (07:03)
[2022-07-01] MEDS: furosemide 20MG tablet PO SCH (07:03)
[2022-07-01] MEDS: potassium chloride 8mEq ER tablet PO SCH (07:03)
[2022-07-01 07:04] LABS: BASOPHILS % (AUTO) 0.5 % (0-1); EOSINOPHILS # (AUTO) 0.4 X10'3 (0-0.9); HEMATOCRIT 26.5 % (35.0-45.0); HEMOGLOBIN 8.4 g/dl (12.0-16.0); LYMPHOCYTES # (AUTO) 1.3 X10'3 (1.1-4.8); LYMPHOCYTES % (AUTO) 13.9 % (21-51); MEAN CORPUSCULAR HGB CONC 31.7 g/dL (33.0-36.5); MEAN CORPUSCULAR VOLUME 69.3 FL (78-98); MEAN PLATELET VOLUME 8.3 FL (7.4-10.4); MONOCYTES # (AUTO) 0.5 X10'3 (0-0.9); MONOCYTES % (AUTO) 5.6 % (2-12); NEUTROPHILS # (AUTO) 7.4 X10'3 (1.8-7.7); PLATELET COUNT 212 X10'3 (140-440); RED BLOOD COUNT 3.83 X10'6 (4.20-5.60); RED CELL DISTRIBUTION WIDTH 33.7 % (11.5-14.5); WHITE BLOOD COUNT 9.7 X10'3 (4.5-11.0)
[2022-07-01] MEDS: normal saline 1000ml 1,000 ML IV SCH ×2 (07:06→19:00)
[2022-07-01] MEDS: K and/or MAG REPLACEMENT MC SCH ×2 (07:09→19:36)
[2022-07-01 07:15] LABS: ALBUMIN 2.1 G/DL (3.4-5.0); ANION GAP 5 (8-16); BLOOD UREA NITROGEN 7 MG/DL (7-18); CALCIUM 8.4 MG/DL (8.5-10.1); CHLORIDE 105 MMOL/L (99-107); CREATININE 0.54 MG/DL (0.40-0.90); GLUCOSE 106 MG/DL (70-104); POTASSIUM 3.7 MMOL/L (3.5-5.1); SODIUM 138 MMOL/L (135-145); TOTAL CARBON DIOXIDE 27.8 MMOL/L (24-32); eGFR > 90 ML/MIN
--- NOTE | 2022-07-01 07:15 | NUR ---
Patient in room PCU 3024. I have received report from Vincenzo and had the opportunity to ask questions and assume patient care.
[2022-07-01 07:43] LABS: NUCLEATED RED BLOOD CELLS 3 /100WBC (0-0); PLATELET ESTIMATE NORMAL; TOTAL CELLS COUNTED 100
[2022-07-01 07:44] LABS: ANISOCYTOSIS 3+; MICROCYTOSIS 2+
[2022-07-01 07:45] LABS: HYPOCHROMASIA 1+; POLYCHROMASIA 2+; SPHEROCYTES FEW
[2022-07-01 07:46] LABS: ELLIPTOCYTES FEW; TEAR DROP CELLS FEW
[2022-07-01] MEDS: acetaminophen 325mg tablet PO PRN ×3 (07:54→22:28)
[2022-07-01 16:02] LABS: OCCULT BLOOD STOOL NEGATIVE (Neg)
[2022-07-01] MEDS: VANCOMYCIN 1,500MG in normal saline IV soln 300 ML IV SCH (16:26)
[2022-07-01 18:00] VITALS: BP 148/84
--- NOTE | 2022-07-01 18:25 | NUR ---
Problems reprioritized. Patient report given, questions answered & plan of care reviewed with Liliana.
[2022-07-01 22:00] VITALS: BP 150/76
[2022-07-02] MEDS: cefepime 1GM/NS ADD-VANTAGE 100 ML IV SCH ×2 (01:52→08:07)
[2022-07-02] MEDS: VANCOMYCIN 1,500MG in normal saline IV soln 300 ML IV SCH ×2 (03:05→08:07)
[2022-07-02] MEDS: normal saline 1000ml 1,000 ML IV SCH (05:00)
[2022-07-02 07:00] VITALS: BP 155/81
[2022-07-02 07:15] LABS: BASOPHILS # (AUTO) 0.1 X10'3 (0-0.2); BASOPHILS % (AUTO) 0.6 % (0-1); EOSINOPHILS # (AUTO) 0.4 X10'3 (0-0.9); HEMATOCRIT 27.6 % (35.0-45.0); HEMOGLOBIN 8.6 g/dl (12.0-16.0); LYMPHOCYTES # (AUTO) 1.4 X10'3 (1.1-4.8); LYMPHOCYTES % (AUTO) 13.1 % (21-51); MEAN CORPUSCULAR HEMOGLOBIN 21.9 PG (27.0-31.0); MEAN CORPUSCULAR VOLUME 70.6 FL (78-98); MEAN PLATELET VOLUME 8.1 FL (7.4-10.4); MONOCYTES # (AUTO) 0.6 X10'3 (0-0.9); MONOCYTES % (AUTO) 5.3 % (2-12); NEUTROPHILS # (AUTO) 8.4 X10'3 (1.8-7.7); PLATELET COUNT 233 X10'3 (140-440); RED BLOOD COUNT 3.92 X10'6 (4.20-5.60); RED CELL DISTRIBUTION WIDTH 34.3 % (11.5-14.5); WHITE BLOOD COUNT 10.9 X10'3 (4.5-11.0)
[2022-07-02 07:19] LABS: ANION GAP 5 (8-16); BLOOD UREA NITROGEN 7 MG/DL (7-18); BUN/CREATININE RATIO 13.5 (6.6-38.0); CALCIUM 8.6 MG/DL (8.5-10.1); CHLORIDE 106 MMOL/L (99-107); CREATININE 0.52 MG/DL (0.40-0.90); GLUCOSE 107 MG/DL (70-104); POTASSIUM 3.9 MMOL/L (3.5-5.1); SODIUM 138 MMOL/L (135-145); TOTAL CARBON DIOXIDE 27.1 MMOL/L (24-32); eGFR > 90 ML/MIN
[2022-07-02] MEDS: K and/or MAG REPLACEMENT MC SCH (08:00)
[2022-07-02] MEDS: apixaban 5mg tablet PO SCH (08:46)
[2022-07-02] MEDS: acetaminophen 325mg tablet PO PRN (08:47)
[2022-07-02] MEDS: potassium chloride 8mEq ER tablet PO SCH (08:47)
[2022-07-02] MEDS: furosemide 20MG tablet PO SCH (08:47)
[2022-07-02] MEDS: levoTHYROXINE 100mcg tablet PO SCH (08:47)
[2022-07-02 11:00] VITALS: BP 142/80
[2022-07-02 12:15] VITALS: BP 167/79
--- NOTE | 2022-07-02 12:24 | NUR ---
Page Sent promotional table spacer PAGER ID: [phone] MESSAGE: [phone] Caroline. Patient was moved up from [facility] and is hypertensive. BP 167/79 HR 84. No PRN to give for BP. Liz or Ruby @[phone] (127 character message out of a maximum of 240)
[2022-07-02] MEDS ORDERED: hyDRALAzine 10mg tablet PO ONE ×2 (12:40→13:55)
[2022-07-02] MEDS ORDERED: DOXY100C2 PO (12:54)
[2022-07-02] MEDS ORDERED: METO-395 PO (12:57)
[2022-07-02 14:27] VITALS: BP 155/87
[2022-07-02] MEDS ORDERED: metoprolol tartrate 12.5mg (1/2 tablet) PO ONE (14:55)
[2022-07-02 15:10] VITALS: BP_SYST 155
[2022-07-02] MEDS ORDERED: VANCOMYCIN LEVEL IV ONE (15:30)
--- NOTE | 2022-07-02 15:38 | NUR ---
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 Pt w/ discharge orders in EMR to discharge on FWW established per RN today. PO ~86% avg initial heart healthy meals meeting estimated needs. LBM 07/01. No nutrition interventions at this time. Will continue to follow. Rec: 1. continue heart healthy diet 2. bowel care per rx 3. weekly wts Addendum: 07/02/22 at [address] Amended: Links added.
--- NOTE | 2022-07-02 17:43 | NUR ---
pt d/c with instructions, understanding of instructions and w/all belongings including walker w/seat and bag of home medications to go home and f/u w/pcp, pt also stated that she got a hold of the sectary at her pcp's office and the sectary told pt that 'she was going to have the pcp refer her to an OBGYN'
== END 2022-07-02 17:49 | disposition home or self-care (01) | DRG 720 ==
LOC: ER 10:48 → ED HOLD 15:03 → PCU 3S 06-29 12:30 → ORTHO 4S 07-02 11:55
PROVIDERS: ADMIT Internal Medicine; ATTEND Internal Medicine
PROC: 30233N1 Transfusion of Nonautologous Red Blood Cells into Peripheral Vein, Percutaneous Approach (ICD-10-PCS; principal; 2022-06-27)
PROC: BW211ZZ Computerized Tomography (CT Scan) of Abdomen and Pelvis using Low Osmolar Contrast (ICD-10-PCS; 2022-06-28)
DX: A41.9 Sepsis, unspecified organism (principal); Z68.44 Body mass index [BMI] 60.0-69.9, adult; L03.115 Cellulitis of right lower limb; D50.0 Iron deficiency anemia secondary to blood loss (chronic); E03.9 Hypothyroidism, unspecified; E66.01 Morbid (severe) obesity due to excess calories; Z20.822 Contact with and (suspected) exposure to COVID-19; Z60.2 Problems related to living alone; J44.9 Chronic obstructive pulmonary disease, unspecified; N83.202 Unspecified ovarian cyst, left side; G89.29 Other chronic pain; M54.9 Dorsalgia, unspecified; I10 Essential (primary) hypertension; L03.116 Cellulitis of left lower limb; M06.9 Rheumatoid arthritis, unspecified; N92.0 Excessive and frequent menstruation with regular cycle; Z79.01 Long term (current) use of anticoagulants; Z86.711 Personal history of pulmonary embolism; Z98.51 Tubal ligation status; Z88.8 Allergy status to other drugs, medicaments and biological substances; Z90.49 Acquired absence of other specified parts of digestive tract; Z79.899 Other long term (current) drug therapy
CPT/HCPCS: 36415; 36430; 71045; 72192; 74177; 76856; 80048; 80053; 80202; 81001; 82272; 83735; 83880; 84443; 85007; 85008; 85025; 85027; 85610; 85730; 86704; 86705; 86706; 86885; 86900; 86901; 86920; 87081; 87210; 87340; 87811; 93976; 97116; 97161; 97530; 99291; A5200; G0378; J0690; J0692; J0696; J1940; J3370; J3490; J7030; J7040; P9016; Q0112; Q9967

== ENCOUNTER 2022-09-16 19:22 | Emergency (ER) | payer MEDICAID ==
[~2022-09-16] VITALS: Ht 162.6 cm; Wt 180.4 kg
[~2022-09-16 19:22] MED LIST changes: +ACET-1 PO; +FURO20TA4 PO; +LEVO100T9 PO; -MEDR10TA PO; +METO-395 PO; +POTA8TAB69 PO; -SYN0.088T PO
[2022-09-16 21:01] LABS: HEMATOCRIT 30.4 % (35.0-45.0); HEMOGLOBIN 9.2 g/dl (12.0-16.0); MEAN CORPUSCULAR HEMOGLOBIN 20.3 PG (27.0-31.0); MEAN CORPUSCULAR HGB CONC 30.4 g/dL (33.0-36.5); MEAN CORPUSCULAR VOLUME 66.7 FL (78-98); MEAN PLATELET VOLUME 8.1 FL (7.4-10.4); PLATELET COUNT 302 X10'3 (140-440); RED BLOOD COUNT 4.55 X10'6 (4.20-5.60); RED CELL DISTRIBUTION WIDTH 20.5 % (11.5-14.5); WHITE BLOOD COUNT 8.5 X10'3 (4.5-11.0)
--- NOTE | 2022-09-17 00:17 | NUR ---
Per MD I brought the patient some feminine hygiene pads
[2022-09-17 00:40] VITALS: BP 179/112
[2022-09-17] MEDS ORDERED: NORE5TAB3 PO (22:34)
== END 2022-09-17 00:48 | disposition home or self-care (01) ==
LOC: ER 19:23
DX: N93.8 Other specified abnormal uterine and vaginal bleeding (principal); I10 Essential (primary) hypertension; J45.909 Unspecified asthma, uncomplicated; Z88.8 Allergy status to other drugs, medicaments and biological substances; Z98.51 Tubal ligation status
CPT/HCPCS: 36415; 85027; 99284

== ENCOUNTER 2022-09-17 10:40 | Emergency (ER) | payer MEDICAID ==
[2022-09-17] VITALS (8 sets, daily range): BP systolic 125–153; BP diastolic 63–76
[~2022-09-17] VITALS: Ht 162.6 cm; Wt 143.0 kg
[2022-09-17 11:18] LABS: BASOPHILS # (AUTO) 0.1 X10'3 (0-0.2); BASOPHILS % (AUTO) 0.9 % (0-1); EOSINOPHILS # (AUTO) 0.2 X10'3 (0-0.9); EOSINOPHILS % (AUTO) 1.4 % (0-6); HEMATOCRIT 26.7 % (35.0-45.0); HEMOGLOBIN 8.1 g/dl (12.0-16.0); LYMPHOCYTES # (AUTO) 2.7 X10'3 (1.1-4.8); LYMPHOCYTES % (AUTO) 24.8 % (21-51); MEAN CORPUSCULAR HEMOGLOBIN 20.1 PG (27.0-31.0); MEAN CORPUSCULAR HGB CONC 30.5 g/dL (33.0-36.5); MONOCYTES # (AUTO) 0.6 X10'3 (0-0.9); MONOCYTES % (AUTO) 5.3 % (2-12); NEUTROPHILS # (AUTO) 7.4 X10'3 (1.8-7.7); NEUTROPHILS % (AUTO) 67.6 % (42-75); PLATELET COUNT 348 X10'3 (140-440); RED BLOOD COUNT 4.04 X10'6 (4.20-5.60); RED CELL DISTRIBUTION WIDTH 20.4 % (11.5-14.5); WHITE BLOOD COUNT 10.9 X10'3 (4.5-11.0)
[2022-09-17 11:30] LABS: ALANINE AMINOTRANSFERASE 18 U/L (12-78); ALBUMIN 3.6 G/DL (3.4-5.0); ALBUMIN/GLOBULIN RATIO 0.9 (1.1-1.5); ALKALINE PHOSPHATASE 52 IU/L (46-116); ANION GAP 8 (8-16); ASPARTATE AMINO TRANSFERASE 11 U/L (10-37); BILIRUBIN,TOTAL 0.4 MG/DL (0.1-1.0); BLOOD UREA NITROGEN 10 MG/DL (7-18); BUN/CREATININE RATIO 11.1 (10.0-20.0); CHLORIDE 104 MMOL/L (99-107); GLUCOSE 134 MG/DL (70-104); LIPASE 68 U/L (73-393); SODIUM 137 MMOL/L (135-145); TOTAL CARBON DIOXIDE 25.3 MMOL/L (24-32); TOTAL PROTEIN 7.6 G/DL (6.4-8.2); eGFR 66 ML/MIN
[2022-09-17 11:44] LABS: ANISOCYTOSIS 3+; MICROCYTOSIS 2+; PLATELET ESTIMATE NORMAL
[2022-09-17 11:45] LABS: HYPOCHROMASIA 1+
[2022-09-17 11:46] LABS: ELLIPTOCYTES FEW; POLYCHROMASIA FEW; SPHEROCYTES FEW; STOMATOCYTES 1+
[2022-09-17] MEDS ORDERED: naproxen 500mg tablet PO ONE (12:35)
[2022-09-17] MEDS ORDERED: normal saline 1000ml 1,000 ML IV ONE (13:50)
--- NOTE | 2022-09-17 14:00 | NUR ---
ASSISTED DR. TRIMBLE WITH PELVIC EXAM. PT HAS ACTIVE BLEEDING, PASSING LARGE CLOTS. DR PACKED VAGINAL VAULT WITH 4X4 GAUZE IN ATTEMPT TO CONTROL BLEEDING.
[2022-09-17 14:12] LABS: HEMOGLOBIN 7.2 g/dl (12.0-16.0); MEAN CORPUSCULAR HEMOGLOBIN 19.9 PG (27.0-31.0); MEAN CORPUSCULAR HGB CONC 29.8 g/dL (33.0-36.5); MEAN CORPUSCULAR VOLUME 66.7 FL (78-98); MEAN PLATELET VOLUME 6.6 FL (7.4-10.4); PLATELET COUNT 319 X10'3 (140-440); RED CELL DISTRIBUTION WIDTH 20.7 % (11.5-14.5)
[2022-09-17 14:32] LABS: HCG SERUM QL NEGATIVE
--- NOTE | 2022-09-17 16:58 | NUR ---
VAGINAL VAULT REMAINS PACKED WITH 4X4 GUAZE. PACKING IS SATURATED. BLEEDING IS ACTIVE.
--- NOTE | 2022-09-17 16:59 | NUR ---
LAB REPORTED PT HAS ANTIBODIES AND BLOOD WILL BE DELAYED.
[2022-09-17] MEDS ORDERED: medroxyprogesterone acet. 2.5mg tablet PO ONE (18:15)
[2022-09-17] MEDS ORDERED: tranexamic acid inj. 1,000 MG in normal saline 100ml IV soln 90 ML IV ONE (19:10)
--- NOTE | 2022-09-17 19:57 | NUR ---
evelyn rn and anni galicia in at bedside removing vaginal packing per [facility] request afte 1 g txa administered IV
[2022-09-17] MEDS ORDERED: NORE5TAB3 PO (22:34)
[2022-09-17 22:53] LABS: HEMATOCRIT 25.7 % (35.0-45.0); HEMOGLOBIN 7.9 g/dl (12.0-16.0); MEAN CORPUSCULAR HEMOGLOBIN 21.9 PG (27.0-31.0); MEAN CORPUSCULAR HGB CONC 30.6 g/dL (33.0-36.5); MEAN CORPUSCULAR VOLUME 71.4 FL (78-98); MEAN PLATELET VOLUME 6.6 FL (7.4-10.4); PLATELET COUNT 250 X10'3 (140-440); RED CELL DISTRIBUTION WIDTH 23.7 % (11.5-14.5); WHITE BLOOD COUNT 8.5 X10'3 (4.5-11.0)
[2022-09-18 00:12] VITALS: BP 152/63
== END 2022-09-18 00:13 | disposition home or self-care (01) ==
LOC: ER 10:40
DX: N93.8 Other specified abnormal uterine and vaginal bleeding (principal); D64.9 Anemia, unspecified; I10 Essential (primary) hypertension; J45.909 Unspecified asthma, uncomplicated; E03.9 Hypothyroidism, unspecified; G89.29 Other chronic pain; M54.9 Dorsalgia, unspecified; Z88.5 Allergy status to narcotic agent; Z79.899 Other long term (current) drug therapy
CPT/HCPCS: 36415; 36430; 80053; 83690; 84703; 85008; 85025; 85027; 86870; 86885; 86900; 86901; 86902; 86905; 86922; 96361; 96365; 99291; J3490; J7030; J7040; P9016; A6449